=== PATIENT | male | born 1995 | race Caucasian/White ===

== ENCOUNTER 2021-05-11 04:27 | Emergency (ER) | payer OTHER ==
[2021-05-11] MEDS ORDERED: MORPHINE SULFATE 4 MG/ML SYRINGE IV STA (04:31)
[2021-05-11 04:32] LABS: Glucose,Whole Blood 180 mg/dL (75-99)
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
[2021-05-11 04:54] LABS: Basophils % (A) 0 %; Eosinophils # (A) 0.2 k/uL (0-0.7); Eosinophils % (A) 2 %; HGB 14.5 gm/dL (13.0-17.5); Lymphocytes # (A) 1.7 k/uL (1.0-4.8); Lymphocytes % (A) 14 %; MCH 28.9 pg (25.0-35.0); MCHC 33.6 g/dL (31.0-37.0); Mean Platelet Volume 7.1; Monocytes # (A) 0.6 k/uL (0-1.0); Monocytes % (A) 5 %; Neutrophils # (A) 9.3 k/uL (1.3-7.7); Neutrophils % (A) 78 %; Platelet Count 239 k/uL (150-450); RDW 12.5 % (11.5-15.5); WBC 11.9 k/uL (3.8-10.6)
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
[2021-05-11 05:03] LABS: Prothrombin Time 10.6 sec (9.0-12.0)
[2021-05-11 05:08] LABS: ALT 84 U/L (4-49); AST 138 U/L (17-59); African American GFR (CKD) >90 (>60 ml/min/1.73 sqM); Albumin 3.9 g/dL (3.5-5.0); Alcohol <10 mg/dL; Alkaline Phosphatase 43 U/L (38-126); Anion Gap 8 mmol/L; Blood Urea Nitrogen 17 mg/dL (9-20); Calcium 8.9 mg/dL (8.4-10.2); Carbon Dioxide 22 mmol/L (22-30); Chloride 108 mmol/L (98-107); Glucose 171 mg/dL (74-99); Non-African American GFR(CKD) >90 (>60 ml/min/1.73 sqM); Potassium 4.5 mmol/L (3.5-5.1); Sodium 138 mmol/L (137-145); Total Bilirubin 0.8 mg/dL (0.2-1.3); Total Protein 6.6 g/dL (6.3-8.2)
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
[2021-05-11 05:21] LABS: Partial Thromboplastin Time 21.2 sec (22.0-30.0)
[2021-05-11 06:05] VITALS: TEMP 97.8
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
--- NOTE | 2021-05-11 06:09 | XR ---
EXAMINATION TYPE: XR ankle complete RT DATE OF EXAM: 05/11/2021 COMPARISON: NONE HISTORY: Pain TECHNIQUE: 3 views FINDINGS: There is soft tissue swelling over the medial malleolus. There is a 10 mm chip fracture of the medial malleolus without significant displacement. Ankle mortise is anatomic. IMPRESSION: Medial malleolus tip fracture with soft tissue swelling.
--- NOTE | 2021-05-11 06:11 | XR ---
EXAMINATION TYPE: XR tibia fibula LT DATE OF EXAM: 05/11/2021 COMPARISON: NONE HISTORY: Pain TECHNIQUE: 4 views FINDINGS: There is apparent nondisplaced 2 cm intra-articular fracture of the tibial spines. There is knee joint effusion. There is no dislocation. The ankle mortise is anatomic. IMPRESSION: Intra-articular fracture of the tibial spines at the knee with joint effusion.
[2021-05-11] MEDS ORDERED: ONDANSETRON 4 MG/2 ML VIAL IVP STA ×2 (06:40→08:34)
[2021-05-11] MEDS ORDERED: HYDROmorphone 0.5 MG/0.5 ML SYRINGE IVP STA (07:44)
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
[2021-05-11] MEDS ORDERED: METOCLOPRAMIDE 5 MG/ML 2 ML VIAL IVP STA ×2 (09:28→10:38)
[2021-05-11] MEDS ORDERED: SODIUM CHLORIDE 0.9% 1,000 ML IV STA (09:32)
[2021-05-11 09:40] VITALS: BP 151/96; PULSE 96; RESP 14
[2021-05-11] MEDS ORDERED: LORazepam 2 MG/ML INJ IV STA (10:38)
[2021-05-11] MEDS ORDERED: PANTOPRAZOLE 40 MG/10 ML VIAL IVP STA (10:38)
[2021-05-11] MEDS ORDERED: SODIUM CHLORIDE 0.9% 500 ML 500 ML IV ONE (10:38)
[2021-05-11 12:29] LABS: Amphetamine Screen,Urine Not Detected (NotDetected); Barbiturate Screen,Urine Not Detected (NotDetected); Benzodiazepines Screen,Urine Not Detected (NotDetected); Cocaine Screen,Urine Not Detected (NotDetected); Methadone Screen, Urine Not Detected (NotDetected); Opiate Screen,Urine Detected (NotDetected); Oxycodone Screen, Urine Not Detected (NotDetected); Phencyclidine Screen,Urine Not Detected (NotDetected); Tricyclic Antidepressant,Urine Not Detected (NotDetected); Urn Cannabinoid Scrn Detected (NotDetected)
[2021-05-11 12:32] LABS: Appearance,Urine Clear (Clear); Bilirubin,Urine Negative (Negative); Blood,Urine Moderate (Negative); Color,Urine Yellow; Glucose,Urine (UA) Negative (Negative); Ketones,Urine Negative (Negative); Leukocyte Esterase,Urine Negative (Negative); Mucus,Urine Rare /hpf; Nitrite,Urine Negative (Negative); PH, Urine 5.5 (5.0-8.0); Protein,Urine Trace (Negative); RBC,Urine 16 /hpf (0-5); Urobilinogen,Urine <2.0 mg/dL (<2.0); WBC,Urine 5 /hpf (0-5)
== END 2021-05-11 11:50 | disposition home or self-care (01) ==
LOC: EC 04:27
DX: S82.51XA Displaced fracture of medial malleolus of right tibia, initial encounter for closed fracture (principal); S82.142A Displaced bicondylar fracture of left tibia, initial encounter for closed fracture; S82.002A Unspecified fracture of left patella, initial encounter for closed fracture; Z91.040 Latex allergy status; F41.9 Anxiety disorder, unspecified; F32.A Depression, unspecified; V43.52XA Car driver injured in collision with other type car in traffic accident, initial encounter; Y92.410 Unspecified street and highway as the place of occurrence of the external cause
CPT/HCPCS: 99285; 96374; 96375 ×5; 96376 ×2; 36415; 93005; 86900; 86901; 80053; 83605; 84484; 85025; 85610; 85730; 86850; 81001; 80306; 80320; 72170; 73590; 73562; 73610; 71045; 72125; 70450; 71260; 74177; 73700; L1830; J2060; J2270; J2765; J2405; C9113; J1170; Q9967

== ENCOUNTER → 2021-07-07 | Outpatient (CLI) | payer OTHER ==
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
== END | disposition home or self-care (01) ==
LOC: RADMRIMAIN 09:22
PROVIDERS: ATTEND Orthopaedic Surgery Orthopaedic Trauma
DX: S83.92XA Sprain of unspecified site of left knee, initial encounter (principal); X58.XXXA Exposure to other specified factors, initial encounter